=== PATIENT | female | born 1990 | race American Indian/Alaskan Native ===

== ENCOUNTER 2017-07-05 22:59 | Inpatient (IN) | payer SELFPAY ==
[2017-07-05] MEDS ORDERED: PITOCin/NS 20 UNIT/1000ML DRIP 20,000 MILLIUNITS/1,000 ML BAG IV ONE (23:59)
[2017-07-05] MEDS ORDERED: SUBLIMAZE ONE (23:59)
[2017-07-05] MEDS ORDERED: LACTATED RINGERS 1,000 ML ONE (23:59)
--- NOTE | 2017-07-06 | History and Physical Report ---
History of Present Illness Date of examination: 07/05/17 Date of admission: 07/05/17 23:30 Chief complaint: Painful contractions History of present illness: 27-year-old 002 at 39+6 weeks presents in active labor, she is a [facility] patient. course complicated by late transfer from [place] at 30 weeks otherwise unremarkable. In triage, she is ~ 6 cm dilated per RN exam. She is GBS negative Past History Past Medical History: no pertinent history Past Surgical History: no surgical history [facility] [employer]SULT[employer] History: denies: chlamydia, gonorrhea, hepatitis B, hepatitis C, HIV, syphilis Social history: , full code. denies: smoking, alcohol abuse, prescription drug abuse, IV drug use - Obstetrical History Expected Date of Delivery: 07/07/17 Actual Gestation: 39 Week(s) 6 Day(s) : 3 Para: 2 Medications and Allergies Allergies Allergy/AdvReac Type Severity Reaction Status Date / Time chloroquine Allergy Unknown Verified 07/05/17 23:07 Review of Systems Constitutional: no fever, no chills, no sweats, no malaise Cardiovascular: no chest pain, no orthopnea, no palpitations, no syncope, no lightheadedness, no shortness of breath, no dyspnea on exertion, no paroxysmal nocturnal dyspnea, no high blood pressure Respiratory: no cough, no shortness of breath, no dyspnea on exertion Gastrointestinal: abdominal pain (Painful contractions), no nausea, no vomiting Genitourinary: contractions, no vaginal bleeding, no vaginal discharge, no leakage of fluid - Vital Signs Vital signs: Vital Signs Pulse BP 77 143/77 07/05/17 23:12 07/05/17 23:12 Temp Pulse Resp BP Pulse Ox 81 133/83 07/05/17 23:27 07/05/17 23:27 - Physical Exam Abdomen: Positive: normal appearance, soft. Negative: distention, tenderness, guarding, rigidity Genitourinary (Female): Positive: normal external genitalia Vulva: both: normal Uterus: Positive: enlarged (EFW ~ 3500) Adnexa: both: normal Extremities: Positive: normal - Obstetrical FHR: category 1 Cervical Dilatation: 6 (Per RN exam) Results All other labs normal. Assessment and Plan A: 27-year-old 002 at 39+6 in active labor -Cat 1 tracing P: -Admit -Routine labs -Epidural when necessary -Expectant management -Anticipate normal vaginal delivery - Patient Problems (1) 39 weeks gestation of Current Visit: Yes Status: Acute (2) Active labor at term Current Visit: Yes Status: Acute (3) Late care affecting in third trimester Current Visit: Yes Status: Acute
[2017-07-06] MEDS ORDERED: PITOCin/NS 20 UNIT/1000ML DRIP 20,000 MILLIUNITS/1,000 ML BAG IV ONE (00:12)
[2017-07-06] MEDS ORDERED: MILK OF MAGNESIA PO PRN (01:28)
[2017-07-06] MEDS ORDERED: NORCO 5/325 PO PRN (01:28)
[2017-07-06] MEDS ORDERED: PHENERGAN PO PRN (01:28)
[2017-07-06] MEDS ORDERED: TYLENOL PO PRN (01:28)
[2017-07-06] MEDS ORDERED: PHENERGAN PR PRN (01:28)
[2017-07-06] MEDS ORDERED: DULCOLAX PR PRN (01:28)
[2017-07-06] MEDS ORDERED: TUCKS PAD TP PRN (01:28)
[2017-07-06] MEDS ORDERED: ZOFRAN IV PRN (01:28)
[2017-07-06] MEDS ORDERED: BENADRYL PO PRN (01:28)
--- NOTE | 2017-07-06 01:28 | Procedure Note ---
OB Delivery Note - Delivery Date of Delivery: 07/06/17 Surgeon: CHERYL KERR Estimated blood loss: 100cc - Vaginal Delivery presentation: vertex Delivery position: OA Intrapartum events: other(please specify) (Limited PNC) Delivery induction: none Delivery monitor: external FHT, external uterine Route of delivery: Delivery placenta: spontaneous Delivery cord: 3 umbilical vessels Episiotomy: none Delivery laceration: 1st degree (Not repaired) Anesthesia: none - A at 1 minute: 8 at 5 minutes: 9 Gender: Female (Del @ 01:13, weight is 7#4 or 3280 g)
[2017-07-06] MEDS ORDERED: SODIUM CHLORIDE FLUSH SYRINGE 10 ML IV PRN (02:00)
[2017-07-06] MEDS ORDERED: PITOCin/NS 20 UNIT/1000ML DRIP 20 UNITS/1,000 ML BAG IV SCH (02:00)
[2017-07-06] MEDS: MOTRIN PO SCH ×4 (02:21→23:32)
[2017-07-06 02:27] LABS: Hematocrit 34.7 % (30.3-42.9); Hemoglobin 11.5 gm/dl (10.1-14.3); Mean Corpuscular HGB Conc 33 % (30-34); Mean Corpuscular Hemoglobin 27 pg (28-32); Mean Corpuscular Volume 82 fl (79-97); Platelet Count 217 K/mm3 (140-440); Red Blood Count 4.23 M/mm3 (3.65-5.03); Red Cell Distribution Width 14.7 % (13.2-15.2); White Blood Count 10.8 K/mm3 (4.5-11.0)
[2017-07-06] MEDS: FEOSOL PO SCH ×2 (10:46→23:32)
[2017-07-06] MEDS: COLACE PO SCH ×2 (10:46→23:32)
[2017-07-06] MEDS: PRENATAL VITAMIN PO SCH (10:46)
[2017-07-06 14:22] LABS: Hematocrit 35.7 % (30.3-42.9); Hemoglobin 11.5 gm/dl (10.1-14.3)
[2017-07-06] MEDS: SENOKOT S PO SCH (22:00)
[2017-07-07] MEDS ORDERED: M-M-R II VACCINE SUB-Q ONE (01:28)
[2017-07-07] MEDS ORDERED: BOOSTRIX IM ONE (06:00)
[2017-07-07] MEDS: MOTRIN PO SCH ×2 (06:03→11:50)
--- NOTE | 2017-07-07 07:35 | Progress Note ---
Assessment and Plan - Patient Problems (1) (normal spontaneous vaginal delivery) Onset Date: 07/07/17 Current Visit: Yes Status: Resolved Plan to address problem: A: S/P - PPD #1 Doing well P: May go home today Subjective - Subjective Date of service: 07/07/17 Principal diagnosis: s/p - PPD #1 Interval history: Pt is feeling well without complaints. Bleeding improved. Patient reports: appetite normal, voiding normally, dizzy ambulation, flatus, ambulating normally : doing well, nursing well Objective - Vital Signs Latest vital signs: Vital Signs Temp Pulse Resp BP BP Pulse Ox 07/06/17 17:26 97.4 F L 66 18 120/76 99 07/06/17 13:05 98.3 F 67 18 110/56 07/06/17 08:59 68 19 120/61 100 07/06/17 08:15 98.9 F 68 19 120/61 Intake and Output 07/06/17 07/07/17 07/07/17 22:59 06:59 14:59 Intake Total 240 Balance 240 Intake: Intake, Free Water 240 Other: # Voids Void 1 - Exam Breasts: Present: deferred Cardiovascular: Present: Regular rate Lungs: Present: Clear to auscultation Abdomen: Present: normal appearance, soft Uterus: Present: normal, firm, fundal height below umbilicus Extremities: Present: normal - Labs Labs: Laboratory Tests 07/06/17 07/06/17 07/06/17 00:00 00:00 14:01 WBC 10.8 RBC 4.23 Hgb 11.5 11.5 Hct 34.7 35.7 MCV 82 MCH 27 L MCHC 33 RDW 14.7 Plt Count 217 Blood Type O POSITIVE Antibody Screen Negative
[2017-07-07] MEDS: PRENATAL VITAMIN PO SCH (11:50)
[2017-07-07] MEDS: SENOKOT S PO SCH (11:51)
[2017-07-07] MEDS ORDERED: Fluarix Quad 2017-2018(36 MOS+ IM ONE (12:00)
--- NOTE | 2017-07-07 12:44 | Discharge Summary ---
Providers - Providers Date of Admission: 07/05/17 23:30 Date of discharge: 07/07/17 Attending physician: CHERYL KERR Primary care physician: CHERYL KERR Hospitalization Reason for admission: active labor, IUP at term Delivery: Episiotomy: none Laceration: 1st degree Other procedures: none complications: none Discharge diagnosis: IUP at term delivered [place] baby: female Hospital course: Unremarkable. Condition at discharge: Good Disposition: DC-01 TO HOME OR SELFCARE - Discharge Diagnoses (1) (normal spontaneous vaginal delivery) Status: Resolved Plan - Discharge Medications Prescriptions: HYDROcodone/APAP 5-325 [[place] 5/325] 1 each PO Q6HR PRN #10 tablet PRN Reason: Pain Ibuprofen [Motrin 600 MG tab] 600 mg PO Q8H PRN #30 tablet PRN Reason: Pain Multivitamin with Iron [Multivitamins with Iron] 1 each PO DAILY #30 tablet - Provider Discharge Summary Activity: routine, no sex for 6 weeks, no heavy lifting 4 weeks, no strenuous exercise Diet: routine Instructions: routine Additional instructions: [] Smoking cessation referral if applicable(refer to patient education folder for contact #) [] Refer to [facility]'s [facility] Booklet Call your doctor immediately for: * Fever > 100.5 * Heavy vaginal bleeding ( >1 pad per hour) * Severe persistent headache * Shortness of breath * Reddened, hot, painful area to leg or breast * Drainage or odor from incision. * Keep incision clean and dry at all times and follow doctor's instructions regarding bathing/showering - Follow up plan Follow up: CHERYL KERR MD [Primary Care Provider] - 6 Weeks
[2017-07-07 16:26] VITALS: BP 126/71
== END 2017-07-07 16:00 | disposition home or self-care (01) | DRG 775 ==
LOC: TRG 22:59 → LD 23:30 → OB 07-06 02:42
PROVIDERS: ADMIT Obstetrics & Gynecology Gynecology; ATTEND Obstetrics & Gynecology Gynecology
PROC: 10E0XZZ Delivery of Products of Conception, External Approach (ICD-10-PCS; principal; 2017-07-05)
PROC: 3E0234Z Introduction of Serum, Toxoid and Vaccine into Muscle, Percutaneous Approach (ICD-10-PCS; 2017-07-07)
DX: O70.0 First degree perineal laceration during delivery (principal); Z3A.39 39 weeks gestation of pregnancy; Z37.0 Single live birth; Z23 Encounter for immunization; Z88.8 Allergy status to other drugs, medicaments and biological substances
CPT/HCPCS: 36415; 85014; 85018; 85027; 86850; 86900; 86901; 90471; 90686; 90715; 99211; G0463; J2590; J3010; J7120